=== PATIENT | female | born 1980 | race African-American/Black ===

== ENCOUNTER → 2017-03-13 | Outpatient (REF) | payer OTHER | LOC: M LAB REF 13:26 | PROVIDERS: ATTEND Specialist | DX: Z12.4 Encounter for screening for malignant neoplasm of cervix (principal) ==

== ENCOUNTER → 2017-03-19 | Outpatient (REF) | payer OTHER | LOC: M SFHCLERA 17:08 | PROVIDERS: ATTEND Nurse Practitioner Family | DX: R30.0 Dysuria (principal) ==

== ENCOUNTER → 2018-02-11 | Outpatient (REF) | payer OTHER | LOC: M SFHCLERA 16:15 | DX: R30.0 Dysuria (principal) | CPT/HCPCS: 87086 ==

== ENCOUNTER → 2018-03-26 | Outpatient (REF) | payer OTHER ==
[2018-03-26 11:07] LABS: HEMATOCRIT 38.4 % (36.0-47.0); HEMOGLOBIN 11.6 g/dl (12.0-15.5); MEAN CORPUSCULAR HEMOGLOBIN 23.3 pg (27.0-33.0); MEAN CORPUSCULAR HGB CONC 30.2 g/dl (32.0-36.5); MEAN CORPUSCULAR VOLUME 77.3 fl (80.0-96.0); PLATELET COUNT, AUTOMATED 311 10^3/uL (150-450); RED BLOOD COUNT 4.97 10^6/uL (4.00-5.40); RED CELL DISTRIBUTION WIDTH 16.8 % (11.5-14.5); WHITE BLOOD COUNT 7.7 10^3/uL (4.0-10.0)
[2018-03-26 11:35] LABS: ESTIMATED AVERAGE GLUCOSE 252 MG/DL (60-110); HEMOGLOBIN A1c 10.4 %
[2018-03-26 12:13] LABS: MALB URINE SIEMENS 68.3 MG/L; MAU/CREAT RATIO 30.4 MCG/MG (0.0-30.0)
[2018-03-26 12:21] LABS: ALBUMIN 3.7 GM/DL (3.2-5.2); ALBUMIN/GLOBULIN RATIO 0.86 (1.00-1.93); ALKALINE PHOSPHATASE 80 U/L (45-117); ALT/SGPT 23 U/L (12-78); ANION GAP 9 MEQ/L (8-16); AST/SGOT 16 U/L (7-37); BILIRUBIN,TOTAL 0.3 MG/DL (0.2-1.0); BLOOD UREA NITROGEN 7 MG/DL (7-18); CALCIUM LEVEL 9.1 MG/DL (8.5-10.1); CARBON DIOXIDE LEVEL 24 MEQ/L (21-32); CHLORIDE LEVEL 103 MEQ/L (98-107); CHOLESTEROL LEVEL 236 MG/DL (<200); CREATININE FOR GFR 0.74 MG/DL (0.55-1.30); FREE T4 1.04 NG/DL (0.76-1.46); GLOMERULAR FILTRATION RATE > 60.0 (>60); GLUCOSE, FASTING 265 MG/DL (70-100); HDL CHOLESTEROL 68 MG/DL (>40); NON-HDL-C 168 MG/DL; POTASSIUM SERUM 4.1 MEQ/L (3.5-5.1); SODIUM LEVEL 136 MEQ/L (136-145); TRIGLYCERIDES LEVEL 130 MG/DL (<150)
== END ==
LOC: M SFHCPLAZ 08:03
DX: E11.9 Type 2 diabetes mellitus without complications (principal); Z13.220 Encounter for screening for lipoid disorders; Z68.41 Body mass index [BMI] 40.0-44.9, adult; E55.9 Vitamin D deficiency, unspecified
CPT/HCPCS: 84443

== ENCOUNTER → 2018-04-08 | Outpatient (REF) | payer OTHER ==
[2018-04-08 12:00] LABS: RETIC HEMOGLOBIN EQUIVALENT 29.4 pg (24-36); RETICULOCYTE # 59.2 10^9/L (17-77); RETICULOCYTE % 1.3 % (0.5-1.5)
[2018-04-08 12:31] LABS: VITAMIN B12 LEVEL 698 PG/ML (247-911)
[2018-04-08 12:32] LABS: FERRITIN 9 NG/ML (8-252); FOLATE 19.1 NG/ML (>5.4); IRON (FE) 28 UG/DL (50-170); PERCENT SATURATION 6.1 % (13.2-45.0); TOTAL IRON BINDING CAPACITY 458 UG/DL (250-450)
== END ==
LOC: M SFHCPLAZ 09:52
DX: D64.9 Anemia, unspecified (principal)
CPT/HCPCS: 82746

== ENCOUNTER → 2018-06-03 | Outpatient (REF) | payer OTHER ==
[2018-06-03 12:23] LABS: HEMATOCRIT 39.2 % (36.0-47.0); HEMOGLOBIN 12.5 g/dl (12.0-15.5); MEAN CORPUSCULAR HEMOGLOBIN 28.1 pg (27.0-33.0); MEAN CORPUSCULAR HGB CONC 31.9 g/dl (32.0-36.5); MEAN CORPUSCULAR VOLUME 88.1 fl (80.0-96.0); PLATELET COUNT, AUTOMATED 217 10^3/uL (150-450); RED BLOOD COUNT 4.45 10^6/uL (4.00-5.40); RED CELL DISTRIBUTION WIDTH 18.6 % (11.5-14.5); RETIC HEMOGLOBIN EQUIVALENT 36.4 pg (24-36); RETICULOCYTE # 111.3 10^9/L (17-77); RETICULOCYTE % 2.5 % (0.5-1.5); WHITE BLOOD COUNT 7.6 10^3/uL (4.0-10.0)
[2018-06-03 12:54] LABS: FERRITIN 31 NG/ML (8-252); IRON (FE) 63 UG/DL (50-170); TOTAL 25(OH) VITAMIN D 24.2 NG/ML (30.0-100.0); TOTAL IRON BINDING CAPACITY 370 UG/DL (250-450)
[2018-06-03 13:15] LABS: ESTIMATED AVERAGE GLUCOSE 180 MG/DL (60-110); HEMOGLOBIN A1c 7.9 %
== END ==
LOC: M SFHCPLAZ 09:51
DX: D50.9 Iron deficiency anemia, unspecified (principal); E55.9 Vitamin D deficiency, unspecified
CPT/HCPCS: 83550

== ENCOUNTER → 2019-06-16 | Outpatient (REF) | payer OTHER ==
[2019-06-16 14:19] LABS: MALB URINE SIEMENS 44.2 MG/L; MAU/CREAT RATIO 37.7 MCG/MG (0.0-30.0)
== END ==
LOC: M SFHCPLAZ 12:44
PROVIDERS: ATTEND Physician Assistant Medical
DX: E11.9 Type 2 diabetes mellitus without complications (principal)